=== PATIENT | male | born 1945 | race Caucasian/White ===

== ENCOUNTER 2021-01-15 13:09 | Inpatient (IN) | payer MEDICARE, OTHER ==
[~2021-01-15] VITALS: Ht 172.7 cm; Wt 104.3 kg
[2021-01-15 14:39] LABS: RED BLOOD COUNT 5.13 M/UL (4.20-5.50); WHITE BLOOD COUNT 11.2 K/UL (4.5-11.0)
[2021-01-15 15:29] LABS: BUN/CREATININE RATIO 21 (0-10)
[2021-01-15] MEDS ORDERED: CETIRIZINE HCL10 MG PO (16:38)
[2021-01-15] MEDS ORDERED: GABAPENTIN800 MG PO (16:38)
[2021-01-15] MEDS ORDERED: HYDROCODONE-AC1 EAC1 PO (16:39)
[2021-01-15] MEDS ORDERED: OMEPRAZOLE40 MG PO (16:39)
[2021-01-15] MEDS ORDERED: LISINOPRIL20 MG PO (16:40)
[2021-01-15] MEDS ORDERED: ATORVASTATIN CA20 MG PO (16:40)
[2021-01-16 03:47] LABS: HEMOGLOBIN 14.2 gm/dl (14.0-17.5); RED BLOOD COUNT 4.88 M/UL (4.20-5.50)
[2021-01-16 04:07] LABS: BUN/CREATININE RATIO 18 (0-10)
[2021-01-17 03:12] LABS: HEMOGLOBIN 13.7 gm/dl (14.0-17.5); RED BLOOD COUNT 4.72 M/UL (4.20-5.50)
[2021-01-17 03:15] LABS: WHITE BLOOD COUNT 13.8 K/UL (4.5-11.0)
[2021-01-17 04:08] LABS: BUN/CREATININE RATIO 25 (0-10)
[2021-01-17] MEDS ORDERED: MEDROL4 MG PO (10:28)
[2021-01-17] MEDS ORDERED: PROAIR HFA8.5 GM INH (10:41)
== END 2021-01-17 16:39 | disposition home or self-care (01) | DRG 177 ==
LOC: ER1 13:09 → CDU 17:45 → M/S 01-16 10:31
PROVIDERS: Emergency Medicine; Physician Assistant Medical; ADMIT Internal Medicine
PROC: 8E0ZXY6 Isolation (ICD-10-PCS; principal; 2021-01-15)
PROC: 3E0333Z Introduction of Anti-inflammatory into Peripheral Vein, Percutaneous Approach (ICD-10-PCS; 2021-01-15)
PROC: XW033E5 Introduction of Remdesivir Anti-infective into Peripheral Vein, Percutaneous Approach, New Technology Group 5 (ICD-10-PCS; 2021-01-15)
DX: U07.1 COVID-19 (principal); J12.82 Pneumonia due to coronavirus disease 2019; J96.01 Acute respiratory failure with hypoxia; I10 Essential (primary) hypertension; F17.210 Nicotine dependence, cigarettes, uncomplicated; E78.5 Hyperlipidemia, unspecified; Z89.202 Acquired absence of left upper limb, unspecified level
CPT/HCPCS: 36415; 36600; 71045; 80048; 80053; 82550; 82553; 82728; 82803; 83615; 83735; 83874; 83880; 84132; 84484; 85025; 85027; 85379; 86140; 87040; 93005; 94640; 94664; 94760; 96374; 96375; 99284; G0378; J0456; J0696; J1100; J1650; J7030; Q9967; U0002